=== PATIENT | male | born 1965 | race Caucasian/White ===

== ENCOUNTER 2020-10-09 12:31 | Emergency (ER) | payer OTHER ==
[~2020-10-09 12:31] MED LIST: Iopamidol 370 76% 100 ML VIAL ONE
[2020-10-09 13:02] LABS: #Basophils 0.1 thou/uL (0.0-0.2); #Eosinphils 0.1 thou/uL (0.0-0.7); #Lymphocytes 1.5 thou/uL (1.20-3.40); #Neutrophils 12.4 thou/uL (1.40-6.50); %Basophils 0.4 % (0.0-1.0); %Eosinophils 0.6 % (0.0-10.0); %Lymphocytes 10.1 % (21.0-51.0); %Monocytes 6.5 % (0.0-10.0); %Neutrophils 82.4 % (42.0-75.0); Hemoglobin 15.7 g/dL (14.0-18.0); Mean Corpuscular HGB CONC 35.2 g/dL (32.0-36.0); Mean Corpuscular Hemoglobin 31.2 pg (27.0-31.0); Mean Corpuscular Volume 88.5 fL (78.0-98.0); Mean Platelet Volume 7.1 fL (7.4-10.4); Platelet Count 203 thou/uL (130-400); Red Blood Cell (RBC) Count 5.03 mill/uL (4.70-6.10); White Blood Cell (WBC) Count 15.1 thou/uL (4.8-10.8)
--- NOTE | 2020-10-09 13:04 | RAD ---
EXAM: 4 views of the right knee HISTORY: Knee pain COMPARISON: None FINDINGS: A small knee effusion is seen. There is a small ossific fragment lateral to the lateral fem oral condyle which could represent an avulsion fracture fragment. Mild tricompartmental joint space narrowing and osteophyte formation is seen consistent with osteoarthritis. Mild lateral soft tissue s welling is present. IMPRESSION: Possible small avulsion fracture along the lateral femoral condyle.
--- NOTE | 2020-10-09 13:06 | RAD ---
EXAM: 3 views of the left shoulder HISTORY: Shoulder pain COMPARISON: None FINDINGS: There is no evidence of acute fracture or dislocation. Mild glenohumeral degenerative villasenor es are present. No soft tissue swelling is seen. The visualized thorax is unremarkable. IMPRESSION: No evidence of acute osseous abnormality.
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
[2020-10-09 13:27] LABS: ALT (SGPT) 32 U/L (8-55); AST (SGOT) 30 U/L (5-34); Alkaline Phosphatase 88 U/L (40-110); Anion Gap 15 mmol/L (10-20); BUN (Urea Nitrogen) 16 mg/dL (8.4-25.7); Bilirubin, Total 0.4 mg/dL (0.2-1.2); Calc. Creatinine Clearance 0 mL/min (70-130); Calcium 9.9 mg/dL (7.8-10.44); Carbon Dioxide 21 mmol/L (22-29); Chloride 102 mmol/L (98-107); Globulin 2.3 g/dL (2.4-3.5); Glucose 334 mg/dL (70-105); Lipase 71 U/L (8-78); Protein, Total 6.3 g/dL (6.0-8.3); Sodium 133 mmol/L (136-145)
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
[2020-10-09] MEDS ORDERED: Morphine 4 MG/ML VIAL ONE ×3 (13:44→16:29)
[2020-10-09 13:53] LABS: Bilirubin Negative (Negative); Blood, Urine Negative (Negative); Clarity Clear (Clear); Glucose, Urine (Dipstick) Greater than 1000 mg/dL (Negative); Ketone, Urine 10 mg/dL (Negative); Leukocyte Negative Leu/uL (Negative); Nitrite Negative (Negative); Protein, Urine (Dipstick) 10 mg/dL (Neg-Trace); Urobilinogen Normal mg/dL (Less than 2); pH, Urine 5.5 (5.0-9.0)
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
[2020-10-09 16:56] LABS: Lactic Acid 1.4 mmol/L (0.5-2.2)
--- NOTE | 2020-10-13 15:21 | EKG ---
Test Reason : Blood Pressure : / mmHG Vent. Rate : 093 BPM Atrial Rate : 093 BPM P-R Int : 150 ms QRS Dur : 098 ms QT Int : 368 ms P-R-T Axes : 048 -02 055 degrees QTc Int : 457 ms Normal sinus rhythm Normal ECG Confirmed by AIYANA VAUGHN DO ([id number]), newspaper photo editor GAVIN FREEMAN ([id number]) on 10/13/2020 3:21:17 PM Referred By: Confirmed By:AIYANA VAUGHN DO
== END 2020-10-09 19:04 | disposition home or self-care (01) ==
LOC: ERS 12:31
DX: S12.600A Unspecified displaced fracture of seventh cervical vertebra, initial encounter for closed fracture (principal); S32.029A Unspecified fracture of second lumbar vertebra, initial encounter for closed fracture; S32.039A Unspecified fracture of third lumbar vertebra, initial encounter for closed fracture; S32.049A Unspecified fracture of fourth lumbar vertebra, initial encounter for closed fracture; S32.059A Unspecified fracture of fifth lumbar vertebra, initial encounter for closed fracture; E11.9 Type 2 diabetes mellitus without complications; I10 Essential (primary) hypertension; V49.9XXA Car occupant (driver) (passenger) injured in unspecified traffic accident, initial encounter
CPT/HCPCS: 36415; 70450; 71045; 71260; 72125; 72141; 74177; 80053; 81003; 83605; 83690; 85025; 93005; 96374; 96376; G0390; J2270; Q9967